=== PATIENT | male | born 1965 | race Hispanic/Latino ===

== ENCOUNTER 2017-03-10 07:29 | Inpatient (IN) | payer MEDICAID ==
--- NOTE | 2017-03-10 07:50 | ED PDOC ---
Arrival/HPI - General Chief Complaint: Psychiatric Evaluation Time Seen by Provider: 03/10/17 07:34 Historian: Patient - History of Present Illness Narrative History of Present Illness (Text): 03/10/17 07:44 A 51 year old male, whose past medical history includes psychiatric disorders, has been transferred from [facility] for direct psych admission for suicidal ideation. Patient states he drinks alcohol daily and his last drink was 16 hours ago. Also, patient mentions feeling shaky and has experienced withdrawal in the past. Patient has no other complaints. Past Medical History - Provider Review Nursing Documentation Reviewed: Yes - Infectious Disease Hx of Infectious Diseases: None - Gastrointestinal Hx Gastroesophageal Reflux: Yes - Psychiatric Hx Anxiety: Yes Hx Depression: Yes Hx Substance Use: No Other/Comment: SI. Substance Abuse Family/Social History - Physician Review Nursing Documentation Reviewed: Yes Family/Social History: Other (nc) Smoking Status: Heavy Smoker > 10 Cigarettes Daily Hx Alcohol Use: Yes Frequency of alcohol use: Daily Hx Substance Use: No Allergies/Home Meds Allergies/Adverse Reactions: Allergies Penicillins Adverse Reaction (Verified 03/10/17 10:49) RASH Home Medications: Home Meds Medication Instructions Recorded Confirmed No Known Home Med 03/10/17 03/10/17 Review of Systems - Physician Review All systems were reviewed & negative as marked: Yes - Review of Systems Constitutional: absent: Fevers Respiratory: absent: SOB Cardiovascular: absent: Chest Pain Gastrointestinal: absent: Abdominal Pain, Vomiting Neurological: absent: Focal Weakness Psychiatric: Suicidal Ideation Physical Exam Vital Signs Reviewed: Yes Vital Signs Temp Pulse Resp BP Pulse Ox 03/10/17 08:27 18 99 03/10/17 07:44 97.5 F L 74 18 117/74 97 Appearance: Positive for: Comfortable Pain Distress: None Mental Status: Positive for: Alert and Oriented X 3 - Systems Exam Head: Present: Atraumatic, Normocephalic Pupils: Present: PERRL Mouth: Present: Moist Mucous Membranes Neck: Present: Normal Range of Motion Respiratory/Chest: Present: Clear to Auscultation, Good Air Exchange. No: Respiratory Distress, Accessory Muscle Use Cardiovascular: Present: Regular Rate and Rhythm, Normal S1, S2. No: Murmurs Abdomen: Present: Normal Bowel Sounds. No: Tenderness, Distention, Peritoneal Signs Back: Present: Normal Inspection Upper Extremity: Present: Normal Inspection. No: Cyanosis, Edema Lower Extremity: Present: Normal Inspection. No: Edema Neurological: Present: GCS=15, Speech Normal Skin: Present: Warm, Dry, Normal Color. No: Rashes Psychiatric: Present: Alert, Oriented x 3, Suicidal Ideation Medical Decision Making - Medication Orders Current Medication Orders: Chlordiazepoxide (Librium) 50 mg PO Q8 VALENTÍN PRN Reason: Protocol Last Admin: 03/10/17 13:50 Dose: 50 mg Folic Acid (Folic Acid) 1 mg PO DAILY [facility] Last Admin: 03/10/17 13:50 Dose: 1 mg Gabapentin (Neurontin) 100 mg PO TID VALENTÍN PRN Reason: Protocol Last Admin: 03/10/17 13:50 Dose: 100 mg Mirtazapine (Remeron) 15 mg PO HS VALENTÍN Multivitamins (Thera Tab) 1 tab PO 0800 VALENTÍN Paroxetine HCl (Paxil) 10 mg PO DAILY [facility] Last Admin: 03/10/17 13:50 Dose: 10 mg Thiamine HCl (Vitamin B1 Tab) 100 mg PO DAILY [facility] Last Admin: 03/10/17 13:50 Dose: 100 mg Discontinued Medications Chlordiazepoxide (Librium) 50 mg PO STAT STA PRN Reason: Protocol Stop: 03/10/17 07:48 Last Admin: 03/10/17 07:58 Dose: 50 mg - Scribe Statement The provider has reviewed the documentation as recorded by the Miesha Ingram Provider Scribe Attestation: All medical record entries made by the Scribe were at my direction and personally dictated by me. I have reviewed the chart and agree that the record accurately reflects my personal performance of the history, physical exam, medical decision making, and the department course for this patient. I have also personally directed, reviewed, and agree with the discharge instructions and disposition. Disposition/Present on Arrival - Present on Arrival Any Indicators Present on Arrival: No History of DVT/PE: No History of Uncontrolled Diabetes: No Urinary Catheter: No History of Decub. Ulcer: No History Surgical Site Infection Following: None - Disposition Have Diagnosis and Disposition been Completed?: Yes Diagnosis: Suicidal ideation Disposition: HOSPITALIZED Disposition Time: 07:44 Condition: STABLE
--- NOTE | 2017-03-10 09:05 | PCM.BM ---
<Franco Mason - Last Filed: 03/10/17 09:06> Treatment Plan Problems - Problems identified on initial assessmt SUICIDAL IDEATION Date Initiated: 03/10/17 Time Initiated: 09:04 Assessment reference: RG VELEZ Status: Active DEPRESSION Date Initiated: 03/10/17 Time Initiated: 09:04 Assessment reference: HP, NA ALCOHOL ABUSE Date Initiated: 03/10/17 Time Initiated: 09:05 Assessment reference: HP, NA Treatment assets and liabiliti Patient Assests: cooperative, motivated, self-reliant, ADL independent, physically healthy, cognitively intact Patient Liabilities: live alone, poor support system, relationship conflicts, substance abuse - Milieu Protocol Maintain good personal hygiene: daily Encourage regular showers, daily Remind patient to perform daily oral care, daily Assist patient to perform ADL's Maintain personal safety: daily Educate patient to report safety concerns to staff, daily Monitor environment for contraband/sharps Medication safety: Monitor for expected outcome, potential side effects: daily, Assess barriers to learning: daily, Assess readiness for medication education: daily Discharge/Continuing Care - Education Needs Education Needs: Patient Medication, Patient Diagnosis/Disease Process, Patient Coping Skills, Patient Anger Management skills, Patient Placement options, Patient Community resources, Patient Activities of Daily Living, Patient Nutrition, Patient Health Practices/Safety, Patient Personal Hygiene/Grooming, Patient Aftercare Safety Plan - Discharge Discharge Criteria: Free of Suicidal thoughts, Normal sleep pattern, Ability to care for self, No longer exhibiting s/s of withdrawal Discharge to:: Home, Substance Abuse Rehab <Yane Gomez - Last Filed: 03/10/17 14:54> - Diagnosis (1) Bipolar 1 disorder Status: Acute Interventions: 03/10/17 14:56 Psychoeducation Psychopharmacology/adjustment of medications as needed/ monitoring possible side effects Monitor blood level of mood stabilizers Evaluate pt on daily basis Compliance with medications and follow up appointments Suicide and homicide risk assessment and prevention, coping strategies, safety plan Relapse prevention Reduction of symptoms Improve functional status Family involvement As outpatient: cognitive behavioral therapy (2) Alcohol use disorder Status: Acute Interventions: 03/10/17 14:56 Monitoring withdrawal symptoms Medical detoxification Pharmacotherapy for alcohol/benzos/opioid dependence Maintaining sobriety Relapse prevention Possible rehabilitation Motivational interviewing 12-step programs: AA meetings 03/10/17 14:56 <Lakesha Alex - Last Filed: 03/10/17 16:10> Family Contact Family involvement: Family/SO is involved Family contact: Patient agrees to contact <Doroat Burroughs - Last Filed: 03/11/17 10:25>
[2017-03-10 11:57] LABS: BASO # 0.03 K/mm3 (0.0-2.0); BASO % 0.5 % (0.0-3.0); EOS # 0.3 (0.0-0.7); EOS % 4.6 % (1.5-5.0); GRAN # 3.9 (1.4-6.5); HEMATOCRIT 39.6 % (42.0-52.0); LYMPH # 1.7 (1.2-3.4); LYMPH % 25.8 % (22.0-35.0); MEAN CELL VOLUME 90.2 fl (80.0-105.0); MEAN CORPUSCULAR HEMOGLOBIN 31.9 pg (25.0-35.0); MEAN CORPUSCULAR HGB CONC 35.4 g/dl (31.0-37.0); MEAN PLATELET VOLUME 8.7 fl (7.0-11.0); MONO # 0.6 (0.1-0.6); MONO % 9.1 % (1.0-6.0); RED CELL DISTRIBUTION WIDTH 13.6 % (11.5-14.5); WHITE BLOOD COUNT 6.5 10^3/ul (4.5-11.0)
[2017-03-10 12:10] LABS: ALB/GLOB RATIO 1.5 (1.1-1.8); ALKALINE PHOSPHATASE 63 U/L (38-133); ALT/SGPT 43 U/L (7-56); AST/SGOT 24 U/L (15-59); BILIRUBIN,TOTAL 0.7 mg/dL (0.2-1.3); BLOOD UREA NITROGEN 16 mg/dL (7-21); CALCIUM 9.3 mg/dL (8.4-10.5); CARBON DIOXIDE 28 mmol/L (21-33); CHLORIDE 105 mmol/L (98-107); CHOLESTEROL 140 mg/dL (130-200); GFR AFRICAN-AMERICAN > 60; GLUCOSE,RANDOM 109 mg/dL (70-110); POTASSIUM 4.2 mmol/L (3.6-5.0); SODIUM 140 mmol/L (132-148); TOTAL PROTEIN 6.8 g/dL (5.8-8.3)
[2017-03-10 12:27] LABS: FREE T4 0.65 ng/dL (0.78-2.19)
--- NOTE | 2017-03-10 15:21 | PCM.PSYCH ---
Initial Psychiatric Evaluation - Initial Psychiatric Evaluation Type of Admission: Voluntary Legal Status: Capacity (patient has capacity to sign consent for treatment) Chief Complaint (in patient's own words): 'I was planning to kill myself for past 2 weeks, yesterday I tried to jump in front of the traffic but my stopped me" Patient's Reaction to Hospitalization: patient was transferred from [facility] for evaluation of depressive symptoms, possible suicidal ideation, with a plan to jump in front of the traffic, as per report patient was going to jump in front of the car, but patient stopped him and brought him to the hospital. History of Present Illness and Precipitating Events: shortly patient is 51 year old male, self reported history of bipolar disorder, history of anxiety disorder, history of multiple psychiatric admissions in the past, s per patient it more than 100 suicidal attempts in the past, history of alcohol use disorder, multiple detoxes and rehabs in the past, patient currently does not work, homeless, was sent from [facility] for evaluation of depressive symptoms, possible suicidal ideation, patient needs further evaluation, observation, medications resumption and titration. Patient was seen today at the treatment team meeting, patient presented to have marginal personal hygiene, not shaved, overall was pleasant, superficially corporative. Include ADLs. Patient reported to have long history of psychiatric illness, patient said first admission was at age of 11 he shouldn't try to kill himself in the past, patient also has history of being in [facility] for consideration [facility] as well as [facility] since the past. As per report patient was at [facility] and was discharged on 02/22/2017, about 15 days ago. As per patient he was noncompliant with the medications and follow- up appointments. Patient reported for past 2 weeks he was feeling hopeless, helpless, depressed, for the past 2 weeks he was thinking to end up his life he was thinking about either overdose on medications or jump in front of the traffic. Patient said that he was planning to jump in front of traffic for past 2 days. Patient reported that he has no future, reported to feel hopeless. Patient was able to contract for safety reported that he have feelings of hurting himself he will ask for help. patient reported that he was drinking alcohol, vodka, about 5 pencil what grade day, patient reported to have mild withdrawal symptoms at present moment and patient has history of seizure withdrawal and alcohol delirium, patient reported last drink was about 17 hours a goal and most likely he will have withdrawal symptoms. Patient said that he is willing to take Librium multivitamins and thiamine. Patient reported that he smokes cigarettes about 2 packs a day, nicotine patch was offered, counseling provided. Patient denied using any other drugs, but has history of opioid dependence as well as abuse of benzodiazepines. Patient denied hearing voices, denied seeing things, denied paranoid ideations, patient does not present as psychotic Denied any legal problems, but reported being in penitentiary due to public intoxication. past psychiatric history: As per Jaison history patient has more than 12 admissions to psychiatry including [facility] when he was 11 years old. No history of sexual or physical abuse. Diagnosed with bipolar disorder and alcohol dependence. He had seizures because of withdrawals. Family psych history: Father committed suicide because of depression and mother was bipolar. Medical history: He had gastritis, atelectasis in his lung, peptic ulcer disease , will call medical consultation. social history: Patient does not work, drinks on daily basis, and the relationship with current girlfriend/ for past 23 years. Patient reported cervical was giving him restless leg syndrome, we'll not resume that medication, patient was willing to take Neurontin, this automatic typewriter inspector offered Paxil, Remeron at the nighttime for insomnia, Librium 50 mg 3 times a day scheduled, multivitamins, thiamine, folic acid. Risk, benefits, alternatives were discussed with the patient. Labs reviewed, transfer documentation from [facility] reviewed 03/10/17 11:30 03/10/17 12:02 Lab Results 03/10/17 12:02: Sodium 140, Potassium 4.2, Chloride 105, Carbon Dioxide 28, Anion Gap 11, BUN 16, Creatinine 0.8, Est GFR ( Amer) > 60, Est GFR (Non- Af Amer) > 60, Random Glucose 109, Calcium 9.3, Total Bilirubin 0.7, AST 24, ALT 43, Alkaline Phosphatase 63, Total Protein 6.8, Albumin 4.1, Globulin 2.7, Albumin/Globulin Ratio 1.5, Triglycerides 202 H, Cholesterol 140, LDL Cholesterol Direct 79, HDL Cholesterol 38 03/10/17 11:30: Free T4 0.65 L, TSH 3rd Generation 1.00 03/10/17 11:30: WBC 6.5, RBC 4.39, Hgb 14.0, Hct 39.6 L, MCV 90.2, MCH 31.9, MCHC 35.4, RDW 13.6, Plt Count 234, MPV 8.7, Gran % 60.0, Lymph % (Auto) 25.8, [place] % (Auto) 9.1 H, Eos % (Auto) 4.6, Baso % (Auto) 0.5, Gran # 3.90, Lymph # 1.7, [place] # 0.6, Eos # 0.3, Baso # 0.03 Vital Signs Temp Pulse Resp BP Pulse Ox 03/10/17 12:37 98.1 F 74 16 132/81 03/10/17 08:27 18 99 03/10/17 07:44 97.5 F L 74 18 117/74 97 Current Medications: Active Medications Generic Name Dose Route Start Last Admin Trade Name Freq PRN Reason Stop Dose Admin Chlordiazepoxide 50 mg 03/10/17 14:00 03/10/17 13:50 Librium PO 50 mg Q8 VALENTÍN Administration Protocol Folic Acid 1 mg 03/10/17 11:00 03/10/17 13:50 Folic Acid PO 1 mg DAILY VALNETÍN Administration Gabapentin 100 mg 03/10/17 13:00 03/10/17 13:50 Neurontin PO 100 mg TID VALENTÍN Administration Protocol Mirtazapine 15 mg 03/10/17 22:00 Remeron PO HS VALENTÍN Multivitamins 1 tab 03/11/17 08:00 Thera Tab PO 0800 VALENTÍN Paroxetine HCl 10 mg 03/10/17 11:00 03/10/17 13:50 Paxil PO 10 mg DAILY VALENTÍN Administration Thiamine HCl 100 mg 03/10/17 11:00 03/10/17 13:50 Vitamin B1 Tab PO 100 mg DAILY VALENTÍN Administration Past Psychiatric History - Past Psychiatric History Previous Treatment History: Inpatient Prior Professional Help: see HPI Prior Psychiatric Treatment: see HPI At what hospital: see HPI Duration: see HPI Nature of Treatment: see HPI Explanation of prior treatment: see HPI History of Abuse: see HPI History of ETOH/Drug Use: see HPI History of Family Illness: see HPI Pertinent Medical Hx (Current Medical&Sleep Prob, Allergies): Allergies Allergy/AdvReac Type Severity Reaction Status Date / Time Penicillins AdvReac RASH Verified 08/30/17 10:49 No Known Home Med 03/10/17 Review of Systems - Review of Systems Systems not reviewed;Unavailable: Acuity of Condition - EENT Eyes: As Per HPI Ears: As Per HPI Nose/Mouth/Throat: As Per HPI - Cardiovascular Cardiovascular: As Per HPI - Respiratory Respiratory: As Per HPI - Gastrointestinal Gastrointestinal: As Per HPI - Genitourinary Genitourinary: As Per HPI - Reproductive: Male Reproductive:Male: As Per HPI - Musculoskeletal Musculoskeletal: As Par HPI - Integumentary Integumentary: As Per HPI - Neurological Neurological: As Per HPI - Psychiatric Psychiatric: As Per HPI - Endocrine Endocrine: As Per HPI - Hematologic/Lymphatic Hematologic: As Per HPI Mental Status Examination - Personal Presentation Personal Presentation: Looks stated age - Affect Affect: Flat - Motor Activity Motor Activity: Psychomotor Retardation - Reliability in Providing Information Reliability in Providing Information: Fair - Speech Speech: Organized - Mood Mood: Depressed, Anxious - Formal Thought Process Formal Thought Process: No Impairment - Obsessions/Compulsions Obsessions: None Compulsions: None - Cognitive Functions Orientation: Person, Place, Situation, Time Sensorium: Alert Attention/Concentration: Easily distracted Estimate of Intelligence: Below average Judgement: Intact, as evidence by: Insight regarding need for hospitalization - Risk Risk: Suicidal, Seizure, Withdrawal, Self-mutilation, Diminished functioning - Strength & Assets Inventory Strength & Assets Inventory: Family support, Cooperative - Limitations Limitations: Other (chronic mental illness, chronic alcohol use, a lot of social issues) DSM 5 DX - DSM 5 DSM 5 Diagnosis: as per past history bipolar disorder type I Alcohol use disorder Rule out substance-induced anxiety disorder Rule out alcohol withdrawals - Recommended/Plan of Treatment Treatment Recommendations and Plan of Treatment: milieu, structure, supportive therapy Paxil will be started 10 mg at the morning time for depression and anxiety Librium 50 mg 3 times a day scheduled for possible alcohol withdrawal symptoms We will monitor vital signs Remeron 15 mg at the nighttime for depression and insomnia Neurontin 300 mg 3 times a day for mood stabilization Multivitamins, thiamine, folic acid will be started Medical consultation will be called freezer worker evaluation for possible rehabilitation, patient does not want to go to rehabilitation This automatic typewriter inspector offering naltrexone patient refused possible collateral information from patient's We'll monitor closely Projected ELOS: 7 days Prognosis: guarded Discharge Plan and Discharge Criteria: Pt will be not depressed or manic, will be more hopeful, will be not psychotic or anxious, will be not having thoughts of harming self or others, will be tolerating medications well, will not have major side effects, will be able to function, will not pose threat to self or others. - Smoking Cessation Smoking Cessation Initiated: Yes
[2017-03-10] MEDS: Alum-Mag Hydrox-Simethicone Susp (30 mL) PO PRN ×2 (17:17→21:05)
[2017-03-11] MEDS: Multivitamin Therapeutic Tab PO SCH (08:48)
[2017-03-11] MEDS: Alum-Mag Hydrox-Simethicone Susp (30 mL) PO PRN (08:57)
[2017-03-11 12:22] LABS: PH,URINE 6.5 (4.7-8.0); URINE BILIRUBIN NEGATIVE (NEGATIVE); URINE BLOOD TRACE-INTACT (NEGATIVE); URINE GLUCOSE (UA) NEGATIVE (NEGATIVE); URINE KETONE NEGATIVE (NEGATIVE); URINE LEUKOCYTE ESTERASE NEGATIVE Leu/uL (NEGATIVE); URINE PROTEIN NEGATIVE mg/dL (<30 mg/dL); URINE UROBILINOGEN 0.2 E.U./dL (<1 E.U./dL)
[2017-03-11 12:33] LABS: URINE APPEARANCE CLEAR (CLEAR); URINE COLOR YELLOW (YELLOW)
[2017-03-11 12:53] LABS: URINE BACTERIA TRACE (NEG); URINE RBC 0 - 2 /hpf (0-2); URINE WBC NEGATIVE /hpf (0-6)
--- NOTE | 2017-03-11 14:56 | CP.PCM.CON ---
<Neli Kidd - Last Filed: 03/11/17 14:57> History of Present Illness - History of Present Illness History of Present Illness: Patient is a 51 year old male with no reported PMHx of Bipolar and anxiety disorder. Of note, patient is a poor historian. Patient rushed through history. He said multiple times "Nothing is wrong with me, I will be going home soon". He was admitted to [facility] Psych unit for suicidal ideation. PMHx: Denied PSHx: Denied Allergies: Denies; Penicillin per chart. Social Hx: Denies Alcohol, Tobacco, or any illicit drug use. Per chart, patient drinks alcohol daily. Hospitalizations: Denies. Per chart patient had multiple Psych Admissions. Family Hx: Denies. Meds: Denies taking any medications at home. ROS Complains of: Complains of Abdominal Pain. (Stated that we wouldn't do anything about it, and that I should not worry about it because he is about to leave soon) Denies: Headache, Dizziness, Lightheadedness, Tremor, Changes in Vision, Chest Pain, Palpitations, SOB, N/V/D, constipation, tingling, focal motor/ sensory lost, Audio/Visual/Tactile Hallucinations, Suicidal Ideation, Homicidal Ideation. Review of Systems - Review of Systems Review of Systems: As per HPI. Past Patient History - Infectious Disease Hx of Infectious Diseases: None - Past Social History Smoking Status: Heavy Smoker > 10 Cigarettes Daily - HEENT Other/Comment: MYRINGOTOMY - GASTROINTESTINAL Hx Gastroesophageal Reflux: Yes - PSYCHIATRIC Hx Anxiety: Yes Hx Depression: Yes Hx Substance Use: No Other/Comment: SI. Substance Abuse - SURGICAL HISTORY Hx Surgeries: No Meds Allergies/Adverse Reactions: Allergies Allergy/AdvReac Type Severity Reaction Status Date / Time Penicillins AdvReac RASH Verified 03/10/17 10:49 - Medications Medications: Current Medications Al Hydrox/Mg Hydrox/Simethicone (Maalox Plus 30 Ml) 30 ml PO DAILY PRN PRN Reason: Indigestion / Heartburn Last Admin: 03/11/17 08:57 Dose: 30 ml Chlordiazepoxide (Librium) 25 mg PO QID VALENTÍN PRN Reason: Protocol Folic Acid (Folic Acid) 1 mg PO DAILY VALENTÍN Last Admin: 03/11/17 08:46 Dose: 1 mg Gabapentin (Neurontin) 100 mg PO TID VALENTÍN PRN Reason: Protocol Last Admin: 03/11/17 12:43 Dose: 100 mg Hydrocortisone (Cortizone 1% Cream) 0 gm TOP BID PRN PRN Reason: Itching / Pruritus Mirtazapine (Remeron) 15 mg PO HS [facility] Last Admin: 03/10/17 21:03 Dose: 15 mg Multivitamins (Thera Tab) 1 tab PO 0800 [facility] Last Admin: 03/11/17 08:48 Dose: 1 tab Nicotine (Nicoderm Cq) 1 patch TD DAILY [facility] Last Admin: 03/11/17 08:58 Dose: Not Given Pantoprazole Sodium (Protonix Ec Tab) 40 mg PO 0600 [facility] Paroxetine HCl (Paxil) 10 mg PO DAILY [facility] Last Admin: 03/11/17 08:48 Dose: 10 mg Thiamine HCl (Vitamin B1 Tab) 100 mg PO DAILY [facility] Last Admin: 03/11/17 08:48 Dose: 100 mg Physical Exam - Constitutional Appears: Non-toxic, No Acute Distress - Head Exam Head Exam: ATRAUMATIC, NORMAL INSPECTION, NORMOCEPHALIC - Eye Exam Eye Exam: EOMI, Normal appearance - Respiratory Exam Respiratory Exam: Clear to Auscultation Bilateral. absent: Rales, Rhonchi, Wheezes - Cardiovascular Exam Cardiovascular Exam: RRR, +S1, +S2. absent: JVD - GI/Abdominal Exam GI & Abdominal Exam: Normal Bowel Sounds, Soft. absent: Organomegaly, Tenderness - Extremities Exam Extremities exam: Positive for: pedal pulses present. Negative for: pedal edema - Neurological Exam Neurological exam: CN II-XII Intact - Psychiatric Exam Psychiatric exam: Agitated, Manic Additional comments: Speech was high volume and rapid rate. Thought Process was linear and Goal- directed. Patient has poor insight and judgment. Results - Vital Signs Recent Vital Signs: Last Vital Signs Temp 97.3 F L 03/11/17 06:24 Pulse 74 03/11/17 06:24 Resp 20 03/11/17 06:24 BP 132/85 03/11/17 06:24 Pulse Ox 95 03/11/17 06:24 - Labs Result Diagrams: 03/10/17 11:30 03/10/17 12:02 Labs: Laboratory Results - last 24 hr 03/11/17 03/11/17 03/11/17 07:10 12:00 12:00 Fasting Glucose 133 H Urine Color Yellow Urine Appearance Clear Urine pH 6.5 Ur Specific [place] 1.015 Urine Protein Negative Urine Glucose (UA) Negative Urine Ketones Negative Urine Blood Trace-intact H Urine Nitrate Negative Urine Bilirubin Negative Urine Urobilinogen 0.2 Ur Leukocyte Esterase Negative Urine RBC 0 - 2 Urine WBC Negative Urine Bacteria Trace Urine Opiates Screen Negative Urine Methadone Screen Negative Ur Barbiturates Screen Negative Ur Phencyclidine Scrn Negative Ur Amphetamines Screen Negative U Benzodiazepines Scrn Positive H U Oth Cocaine Metabols Negative U Cannabinoids Screen Negative Assessment & Plan - Assessment and Plan (Free Text) Assessment: 51 y.o male admitted for suicidal ideation. Plan: We added protonix for GI prophylaxis. TSH for normal. Triglycerides were elevated at 202. Elevated triglycerides can be managed outpatient. We will sign of on this patient. Please feel free to contact us with questions. Patient seen, discussed, and reviewed with Attending. Neli Kidd PGY-1 - Date & Time Date: 03/11/17 Time: 12:00 <Ingris Dickerson - Last Filed: 03/11/17 16:07> Meds - Medications Medications: Current Medications Al Hydrox/Mg Hydrox/Simethicone (Maalox Plus 30 Ml) 30 ml PO DAILY PRN PRN Reason: Indigestion / Heartburn Last Admin: 03/11/17 08:57 Dose: 30 ml Chlordiazepoxide (Librium) 25 mg PO QID [facility] PRN Reason: Protocol Folic Acid (Folic Acid) 1 mg PO DAILY [facility] Last Admin: 03/11/17 08:46 Dose: 1 mg Gabapentin (Neurontin) 100 mg PO TID VALENT[facility]N PRN Reason: Protocol Last Admin: 03/11/17 12:43 Dose: 100 mg Hydrocortisone (Cortizone 1% Cream) 0 gm TOP BID PRN PRN Reason: Itching / Pruritus Stop: 03/13/17 23:59 Lorazepam (Ativan) 2 mg IM QID PRN; Protocol PRN Reason: severe agitation Mirtazapine (Remeron) 15 mg PO HS [facility] Last Admin: 03/10/17 21:03 Dose: 15 mg Multivitamins (Thera Tab) 1 tab PO 0800 [facility] Last Admin: 03/11/17 08:48 Dose: 1 tab Nicotine (Nicoderm Cq) 1 patch TD DAILY [facility] Last Admin: 03/11/17 08:58 Dose: Not Given Pantoprazole Sodium (Protonix Ec Tab) 40 mg PO 0600 [facility] Paroxetine HCl (Paxil) 10 mg PO DAILY [facility] Last Admin: 03/11/17 08:48 Dose: 10 mg Thiamine HCl (Vitamin B1 Tab) 100 mg PO DAILY [facility] Last Admin: 03/11/17 08:48 Dose: 100 mg Ziprasidone (Geodon Cap) 20 mg PO Q6H PRN; Protocol PRN Reason: agiation Ziprasidone (Geodon Inj) 20 mg IM QID PRN; Protocol PRN Reason: severe agitation Results - Vital Signs Recent Vital Signs: Last Vital Signs Temp 97.3 F L 03/11/17 06:24 Pulse 74 03/11/17 06:24 Resp 20 03/11/17 06:24 BP 132/85 03/11/17 06:24 Pulse Ox 95 03/11/17 06:24 - Labs Result Diagrams: 03/10/17 11:30 03/10/17 12:02 Labs: Laboratory Results - last 24 hr 03/11/17 03/11/17 03/11/17 07:00 07:10 12:00 Fasting Glucose 133 H Urine Color Yellow Urine Appearance Clear Urine pH 6.5 Ur Specific [place] 1.015 Urine Protein Negative Urine Glucose (UA) Negative Urine Ketones Negative Urine Blood Trace-intact H Urine Nitrate Negative Urine Bilirubin Negative Urine Urobilinogen 0.2 Ur Leukocyte Esterase Negative Urine RBC 0 - 2 Urine WBC Negative Urine Bacteria Trace Urine Opiates Screen Urine Methadone Screen Ur Barbiturates Screen Ur Phencyclidine Scrn Ur Amphetamines Screen U Benzodiazepines Scrn U Oth Cocaine Metabols U Cannabinoids Screen RPR Nonreactive 03/11/17 12:00 Fasting Glucose Urine Color Urine Appearance Urine pH Ur Specific [place] Urine Protein Urine Glucose (UA) Urine Ketones Urine Blood Urine Nitrate Urine Bilirubin Urine Urobilinogen Ur Leukocyte Esterase Urine RBC Urine WBC Urine Bacteria Urine Opiates Screen Negative Urine Methadone Screen Negative Ur Barbiturates Screen Negative Ur Phencyclidine Scrn Negative Ur Amphetamines Screen Negative U Benzodiazepines Scrn Positive H U Oth Cocaine Metabols Negative U Cannabinoids Screen Negative RPR Attending/Attestation - Attestation I have personally seen and examined this patient.: Yes I have fully participated in the care of the patient.: Yes I have reviewed all pertinent clinical information: Yes Notes (Text): 03/11/17 15:57 attending note; Patient seen and examined in psychiatric floor. Patient is alert and awake. denies any complaints. Lab reviewed. mildly elevated glucose and triglyceride. Dietitian evaluation requested. Carbohydrate consistent diet ordered. alcohol abuse; continue multivitamin, thiamine, folic acid. Continue Librium. Active smoking; continue NicoDerm patch. Smoking cessation/alcohol cessation is strongly advised. Patient is medically stable. Please reconsult as needed. Thank you for the courtesy of this consultation.
--- NOTE | 2017-03-11 14:58 | PCM.PYCHPN ---
Psychiatric Progress Note - Psychiatric Progress Note Patient seen today, length of contact: 30 minutes Patient Chief Complaint: 'I was just trunk, I want to leave, please let me go" Problems Identified/Issues Discussed: Suicide/ homicide prevention, past psychiatric h/o, current psychiatric symptoms , medical problems, risk/benefits and alternatives of medications, medications compliance, coping strategies, substance abuse h/o, relapse prevention, importance of follow up with psychiatrist and therapist, discharge plan. Medical Problems: eczema, gastritis, atelectasis in his lung, peptic ulcer disease Diagnostic Results: 03/10/17 11:30 03/10/17 12:02 Lab Results 03/11/17 12:00: Urine Opiates Screen Negative, Urine Methadone Screen Negative, Ur Barbiturates Screen Negative, Ur Phencyclidine Scrn Negative, Ur Amphetamines Screen Negative, U Benzodiazepines Scrn Positive H, U Oth Cocaine Metabols Negative, U Cannabinoids Screen Negative 03/11/17 12:00: Urine Color Yellow, Urine Appearance Clear, Urine pH 6.5, Ur Specific [place] 1.015, Urine Protein Negative, Urine Glucose (UA) Negative, Urine Ketones Negative, Urine Blood Trace-intact H, Urine Nitrate Negative, Urine Bilirubin Negative, Urine Urobilinogen 0.2, Ur Leukocyte Esterase Negative , Urine RBC 0 - 2, Urine WBC Negative, Urine Bacteria Trace 03/11/17 07:10: Fasting Glucose 133 H 03/10/17 12:02: Sodium 140, Potassium 4.2, Chloride 105, Carbon Dioxide 28, Anion Gap 11, BUN 16, Creatinine 0.8, Est GFR ( Amer) > 60, Est GFR (Non- Af Amer) > 60, Random Glucose 109, Calcium 9.3, Total Bilirubin 0.7, AST 24, ALT 43, Alkaline Phosphatase 63, Total Protein 6.8, Albumin 4.1, Globulin 2.7, Albumin/Globulin Ratio 1.5, Triglycerides 202 H, Cholesterol 140, LDL Cholesterol Direct 79, HDL Cholesterol 38 03/10/17 11:30: Free T4 0.65 L, TSH 3rd Generation 1.00 03/10/17 11:30: WBC 6.5, RBC 4.39, Hgb 14.0, Hct 39.6 L, MCV 90.2, MCH 31.9, MCHC 35.4, RDW 13.6, Plt Count 234, MPV 8.7, Gran % 60.0, Lymph % (Auto) 25.8, [place] % (Auto) 9.1 H, Eos % (Auto) 4.6, Baso % (Auto) 0.5, Gran # 3.90, Lymph # 1.7, [place] # 0.6, Eos # 0.3, Baso # 0.03 Vital Signs Temp Pulse Resp BP Pulse Ox 03/11/17 06:24 97.3 F L 74 20 132/85 95 03/10/17 12:37 98.1 F 74 16 132/81 03/10/17 08:27 18 99 03/10/17 07:44 97.5 F L 74 18 117/74 97 DSM 5 Symptoms Update: shortly patient is 51 year old male, self reported history of bipolar disorder, history of anxiety disorder, history of multiple psychiatric admissions in the past, s per patient it more than 100 suicidal attempts in the past, history of alcohol use disorder, multiple detoxes and rehabs in the past, patient currently does not work, homeless, was sent from [facility] for evaluation of depressive symptoms, possible suicidal ideation, patient needs further evaluation, observation, medications resumption and titration. Patient was seen today in his room, pt submitted 48hr notice today, when was asked why, pt said that he wants to go to work, at the same time pt said "I was just drunk", this lyric writer would like to emphasize the fact that patient said yesterday that he was planning to jump in front of the car for past 3 days, patient also was pulled back when patient tried to jump in front of the car, patient seems to be minimizing, still not ready to go for discharge, needs further evaluation and stabilization. after education, pt rescinded 48 hour notice. withdrawals are better, pt reported to sleep well as per staff pt at times is irritable, angry. no behavioral incidents. compliance with meds good, but pt has unpredictable impulses. DSM 5 Diagnosis: as per past history bipolar disorder type I Alcohol use disorder Rule out substance-induced anxiety disorder Rule out alcohol withdrawals Medication Change: Yes (Librium dose decreased) Medical Record Reviewed: Yes Consults ordered or reviewed: medical consult appreciated, see notes for more detailed information, discussed with Dr. Hargrove today Mental Status Examination - Cognitive Function Orientation: Person, Place, Situation, Time Memory: Intact Attention: Poor Concentration: Poor Association: WNL Fund of Knowledge: WNL - Mood Mood: Depressed, Anxious - Affect Affect: Flat - Speech Speech: Appropriate - Formal Thought Process Formal Thought Process: No Impairment - Suicidal Ideation Suicidal Ideation: No - Homicidal Ideation Homicidal Ideation: No Goal/Treatment Plan - Goal/Treatment Plan Need for Continued Stay: Remain at risks for inpatient hospitalization, Severe depression anxiety, Discharge may exacerbated symptoms, Severe functional impairment Progress Toward Problem(s) and Goals/Treatment Plan: milieu, structure, supportive therapy Paxil 10 mg at the morning time for depression and anxiety Librium 25qid times a day scheduled for possible alcohol withdrawal symptoms We will monitor vital signs Remeron 15 mg at the nighttime for depression and insomnia Neurontin 300 mg 3 times a day for mood stabilization Multivitamins, thiamine, folic acid will be started Medical consultation will be called community mental health worker evaluation for possible rehabilitation, patient does not want to go to rehabilitation This lyric writer offering naltrexone patient refused possible collateral information from patient's We'll monitor closely Estimated Date of D/C: 03/16/17
[2017-03-11] MEDS ORDERED: Pantoprazole 40 mg EC Tab PO ONE (17:30)
[2017-03-12] MEDS ORDERED: Pantoprazole 40 mg EC Tab PO SCH ×2 (06:00)
[2017-03-12 07:01] VITALS: O2SAT 94
[2017-03-12] MEDS: Multivitamin Therapeutic Tab PO SCH (08:38)
[2017-03-12] MEDS: Pantoprazole 40 mg EC Tab PO SCH (08:45)
[2017-03-12] MEDS: Hydrocortisone 1% Cream (30 GM) TOP PRN (08:55)
--- NOTE | 2017-03-12 15:59 | PCM.PYCHPN ---
Psychiatric Progress Note - Psychiatric Progress Note Patient seen today, length of contact: 30 minutes Patient Chief Complaint: 'I don't think that I am suicidal now, all I need to do is stop drinking..." Problems Identified/Issues Discussed: Suicide/ homicide prevention, past psychiatric h/o, current psychiatric symptoms , medical problems, risk/benefits and alternatives of medications, medications compliance, coping strategies, substance abuse h/o, relapse prevention, importance of follow up with psychiatrist and therapist, discharge plan. Medical Problems: eczema, gastritis, atelectasis in his lung, peptic ulcer disease Diagnostic Results: 03/10/17 11:30 03/10/17 12:02 Lab Results 03/11/17 12:00: Urine Opiates Screen Negative, Urine Methadone Screen Negative, Ur Barbiturates Screen Negative, Ur Phencyclidine Scrn Negative, Ur Amphetamines Screen Negative, U Benzodiazepines Scrn Positive H, U Oth Cocaine Metabols Negative, U Cannabinoids Screen Negative 03/11/17 12:00: Urine Color Yellow, Urine Appearance Clear, Urine pH 6.5, Ur Specific [place] 1.015, Urine Protein Negative, Urine Glucose (UA) Negative, Urine Ketones Negative, Urine Blood Trace-intact H, Urine Nitrate Negative, Urine Bilirubin Negative, Urine Urobilinogen 0.2, Ur Leukocyte Esterase Negative , Urine RBC 0 - 2, Urine WBC Negative, Urine Bacteria Trace 03/11/17 07:10: Fasting Glucose 133 H 03/10/17 12:02: Sodium 140, Potassium 4.2, Chloride 105, Carbon Dioxide 28, Anion Gap 11, BUN 16, Creatinine 0.8, Est GFR ( Amer) > 60, Est GFR (Non- Af Amer) > 60, Random Glucose 109, Calcium 9.3, Total Bilirubin 0.7, AST 24, ALT 43, Alkaline Phosphatase 63, Total Protein 6.8, Albumin 4.1, Globulin 2.7, Albumin/Globulin Ratio 1.5, Triglycerides 202 H, Cholesterol 140, LDL Cholesterol Direct 79, HDL Cholesterol 38 03/10/17 11:30: Free T4 0.65 L, TSH 3rd Generation 1.00 03/10/17 11:30: WBC 6.5, RBC 4.39, Hgb 14.0, Hct 39.6 L, MCV 90.2, MCH 31.9, MCHC 35.4, RDW 13.6, Plt Count 234, MPV 8.7, Gran % 60.0, Lymph % (Auto) 25.8, [place] % (Auto) 9.1 H, Eos % (Auto) 4.6, Baso % (Auto) 0.5, Gran # 3.90, Lymph # 1.7, [place] # 0.6, Eos # 0.3, Baso # 0.03 Vital Signs Temp Pulse Resp BP Pulse Ox 03/11/17 06:24 97.3 F L 74 20 132/85 95 03/10/17 12:37 98.1 F 74 16 132/81 03/10/17 08:27 18 99 03/10/17 07:44 97.5 F L 74 18 117/74 97 Temp Pulse Resp BP Pulse Ox 97.4 F L 80 20 116/73 94 L 03/12/17 06:59 03/12/17 15:57 03/12/17 06:59 03/12/17 15:57 03/12/17 06:59 DSM 5 Symptoms Update: shortly patient is 51 year old male, self reported history of bipolar disorder, history of anxiety disorder, history of multiple psychiatric admissions in the past, s per patient it more than 100 suicidal attempts in the past, history of alcohol use disorder, multiple detoxes and rehabs in the past, patient currently does not work, homeless, was sent from [facility] for evaluation of depressive symptoms, possible suicidal ideation, patient needs further evaluation, observation, medications resumption and titration. Patient was seen today at the [facility] area, pt submitted 48hr notice yesterday, then rescinded it later on. pt said that he feels "much better", when was asked what made that change patient said "all I need to do is stop drinking", patient has long and debilitating history of alcohol use disorder, multiple rehabs and detoxes, also bipolar disorder with history of more than 100 suicidal attempts (as per patient ). overall patient is improving, but as per nursing report, patient has episodes of emotional lability, unpredictable impulses, considering the fact that patient tried to end up his life by jumping in front of the car prior to come to the hospital, this designer/writer was to observe patient over the weekend. withdrawals are better, pt reported to sleep well as per staff pt at times is irritable, angry. no behavioral incidents. compliance with meds good, but pt has unpredictable impulses. DSM 5 Diagnosis: as per past history bipolar disorder type I Alcohol use disorder Rule out substance-induced anxiety disorder Rule out alcohol withdrawals Medication Change: Yes Medical Record Reviewed: Yes Consults ordered or reviewed: medical consult appreciated, see notes for more detailed information, discussed with Dr. Hargrove today Mental Status Examination - Cognitive Function Orientation: Person, Place, Situation, Time Memory: Intact Attention: Poor (some improvements) Concentration: Poor (some improvements) Association: WNL Fund of Knowledge: WNL - Mood Mood: Depressed (and feel better), Anxious - Affect Affect: Flat - Speech Speech: Appropriate - Formal Thought Process Formal Thought Process: No Impairment - Suicidal Ideation Suicidal Ideation: No - Homicidal Ideation Homicidal Ideation: No Goal/Treatment Plan - Goal/Treatment Plan Need for Continued Stay: Remain at risks for inpatient hospitalization, Severe depression anxiety, Discharge may exacerbated symptoms, Severe functional impairment Progress Toward Problem(s) and Goals/Treatment Plan: milieu, structure, supportive therapy Paxil 20 mg at the morning time for depression and anxiety Librium 25 three times a day scheduled for possible alcohol withdrawal symptoms We will monitor vital signs Remeron 30 mg at the nighttime for depression and insomnia Neurontin 300 mg 3 times a day for mood stabilization Multivitamins, thiamine, folic acid will be started Medical consultation will be called facility maintenance worker evaluation for possible rehabilitation, patient does not want to go to rehabilitation This designer/writer offering naltrexone patient refused possible collateral information from patient's We'll monitor closely possible discharge on Wednesday Estimated Date of D/C: 03/16/17
--- NOTE | 2017-03-13 08:34 | PCM.PYCHPN ---
Psychiatric Progress Note - Psychiatric Progress Note Patient seen today, length of contact: 25 minutes Patient Chief Complaint: "okay, better" Problems Identified/Issues Discussed: I reviewed assessment and recent notes. I met with patient at bedside. Patient is oriented x3, calm and superficially cooperative. Grooming is adequate. Patient reports feeling "okay, better". Affect is neutral during our interview. He denies any new concerns, handling medications and detox well without any current discomfort or pain. Denies wishes or suicidal thoughts. Patient continues to deny hallucinations or paranoia. Responses are relevant to questioning and he does not appear to be responding to internal stimuli. Staff notes indicate that patient has been labile and uncooperative at times. There were no major behavioral issues overnight. Diagnostic Results: as per past history bipolar disorder type I Alcohol use disorder Rule out substance-induced anxiety disorder Rule out alcohol withdrawals Medication Change: Yes (Librium decreased to 25 mg [facility] on 03/13/17) Medical Record Reviewed: Yes Mental Status Examination - Cognitive Function Orientation: Person, Place, Situation, Time Memory: Intact Attention: Poor (some improvements) Concentration: Poor (some improvements) Association: WNL Fund of Knowledge: WNL - Mood Mood: Depressed ( "okay, better"), Anxious - Affect Affect: Flat - Speech Speech: Appropriate - Formal Thought Process Formal Thought Process: No Impairment - Suicidal Ideation Suicidal Ideation: No - Homicidal Ideation Homicidal Ideation: No Goal/Treatment Plan - Goal/Treatment Plan Need for Continued Stay: Remain at risks for inpatient hospitalization, Severe depression anxiety, Discharge may exacerbated symptoms, Severe functional impairment Progress Toward Problem(s) and Goals/Treatment Plan: * c/w current tx and plan * Librium decreased to 25 mg [facility] on 03/13/17 * No new weekend labs thus far * Vitals reviewed and noted below: Selected Entries 03/12/17 03/12/17 06:59 15:57 Temperature 97.4 F L Pulse Rate 72 80 Respiratory 20 Rate Blood Pressure 113/74 116/73 Estimated Date of D/C: 03/16/17
[2017-03-13] MEDS: Hydrocortisone 1% Cream (30 GM) TOP PRN (08:38)
[2017-03-13] MEDS: Pantoprazole 40 mg EC Tab PO SCH (08:38)
[2017-03-13] MEDS: Multivitamin Therapeutic Tab PO SCH (08:40)
[2017-03-14] MEDS: Pantoprazole 40 mg EC Tab PO SCH (08:46)
[2017-03-14] MEDS: Multivitamin Therapeutic Tab PO SCH (08:46)
--- NOTE | 2017-03-14 08:49 | PCM.PYCHPN ---
Psychiatric Progress Note - Psychiatric Progress Note Patient seen today, length of contact: 25 minutes Patient Chief Complaint: "okay, better" Problems Identified/Issues Discussed: I reviewed recent notes and met with patient at bedside. Patient is calm and superficially cooperative. Responses are perfunctory without elaboration. Grooming is adequate. Patient reports feeling "better". Affect is neutral during our interview. He denies any new concerns, handling medications and detox well without any current discomfort or pain. Denies tremors and they weren't observed during my visit. He continues to deny having any wishes, suicidal thoughts or hallucinations. Appears to be well oriented. Responses are relevant to questioning and he does not appear to be responding to internal stimuli. Staff notes indicate that patient has been labile, short-tempered and uncooperative at times. Refused to go to group. Required prn raymond Wednesday. Diagnostic Results: as per past history bipolar disorder type I Alcohol use disorder Rule out substance-induced anxiety disorder Rule out alcohol withdrawals Medication Change: Yes (Librium tapered) Medical Record Reviewed: Yes Mental Status Examination - Cognitive Function Orientation: Person, Place, Situation, Time Memory: Intact Attention: Poor (some improvements) Concentration: Poor (some improvements) Association: WNL Fund of Knowledge: WNL - Mood Mood: Depressed ( "okay, better"), Anxious - Affect Affect: Flat - Speech Speech: Appropriate - Formal Thought Process Formal Thought Process: No Impairment - Suicidal Ideation Suicidal Ideation: No - Homicidal Ideation Homicidal Ideation: No Goal/Treatment Plan - Goal/Treatment Plan Need for Continued Stay: Remain at risks for inpatient hospitalization, Severe depression anxiety, Discharge may exacerbated symptoms, Severe functional impairment Progress Toward Problem(s) and Goals/Treatment Plan: * c/w current tx and plan * Librium decreased to 25 mg AMHS on 03/13/17 and then to 25 mg HS on 03/14/17 * No new weekend labs * Vitals reviewed and noted below: Selected Entries 03/13/17 03/13/17 07:24 16:00 Temperature 97.6 F Pulse Rate 62 76 Respiratory 20 Rate Blood Pressure 117/81 117/67 Estimated Date of D/C: 03/16/17
[2017-03-15] MEDS: Pantoprazole 40 mg EC Tab PO SCH (06:25)
[2017-03-15 06:58] VITALS: BP 125/84; PULSE 81; RESP 18; TEMP 98.2
[2017-03-15] MEDS: Multivitamin Therapeutic Tab PO SCH (09:14)
--- NOTE | 2017-03-15 15:45 | PCM.PYCHDC ---
Mental Status Examination - Mental Status Examination Orientation: Person, Place, Situation, Time Memory: Intact Mood: Neutral Affect: Broad (and mood congruent) Speech: Appropriate Attention: WNL Concentration: WNL Association: WNL Fund of Knowledge: WNL Formal Thought Process: No Impairment Description of patient's judgement and insight: Pt has improved insight into mental and medical illness, pt was compliant with medications and unit rules and regulations, pt was going to groups, was calm, cooperative, socially appropriate, no behavioral incidents, no agitation, no aggression. Psychotic Thoughts and Behaviors: Pt denied v/a/t hallucinations, denied paranoid ideations, pt does not appear to be psychotic, and thought process is goal directed. Suicidal Ideation: No Current Homicidal Ideation?: No Plan: pt adamantly denied thoughts of harming self or others denied intent or plan. Discharge Summary - Discharge Note Reason for Hospitalization: patient was transferred from [facility] for evaluation of depressive symptoms, possible suicidal ideation, with a plan to jump in front of the traffic, as per report patient was going to jump in front of the car, but patient stopped him and brought him to the hospital. during this hospitalization patient said that he was drunk when attempted to run in front of the traffic. Psychiatric History (includes Medical, Family, Personal Hx): see HPI Laboratory Data: 03/10/17 11:30 03/10/17 12:02 Lab Results 03/11/17 12:00: Urine Opiates Screen Negative, Urine Methadone Screen Negative, Ur Barbiturates Screen Negative, Ur Phencyclidine Scrn Negative, Ur Amphetamines Screen Negative, U Benzodiazepines Scrn Positive H, U Oth Cocaine Metabols Negative, U Cannabinoids Screen Negative 03/11/17 12:00: Urine Color Yellow, Urine Appearance Clear, Urine pH 6.5, Ur Specific [place] 1.015, Urine Protein Negative, Urine Glucose (UA) Negative, Urine Ketones Negative, Urine Blood Trace-intact H, Urine Nitrate Negative, Urine Bilirubin Negative, Urine Urobilinogen 0.2, Ur Leukocyte Esterase Negative , Urine RBC 0 - 2, Urine WBC Negative, Urine Bacteria Trace 03/11/17 07:10: Fasting Glucose 133 H 03/11/17 07:00: RPR Nonreactive 03/10/17 12:02: Sodium 140, Potassium 4.2, Chloride 105, Carbon Dioxide 28, Anion Gap 11, BUN 16, Creatinine 0.8, Est GFR ( Amer) > 60, Est GFR (Non- Af Amer) > 60, Random Glucose 109, Calcium 9.3, Total Bilirubin 0.7, AST 24, ALT 43, Alkaline Phosphatase 63, Total Protein 6.8, Albumin 4.1, Globulin 2.7, Albumin/Globulin Ratio 1.5, Triglycerides 202 H, Cholesterol 140, LDL Cholesterol Direct 79, HDL Cholesterol 38 03/10/17 11:30: Free T4 0.65 L, TSH 3rd Generation 1.00 03/10/17 11:30: WBC 6.5, RBC 4.39, Hgb 14.0, Hct 39.6 L, MCV 90.2, MCH 31.9, MCHC 35.4, RDW 13.6, Plt Count 234, MPV 8.7, Gran % 60.0, Lymph % (Auto) 25.8, [place] % (Auto) 9.1 H, Eos % (Auto) 4.6, Baso % (Auto) 0.5, Gran # 3.90, Lymph # 1.7, [place] # 0.6, Eos # 0.3, Baso # 0.03 Vital Signs Temp Pulse Resp BP Pulse Ox 03/15/17 07:00 98.2 F 81 18 125/84 03/15/17 06:57 98.2 F 81 18 125/84 03/14/17 16:00 79 127/93 H 03/14/17 07:22 97.6 F 62 20 114/68 03/13/17 16:00 76 117/67 03/13/17 07:24 97.6 F 62 20 117/81 03/12/17 15:57 80 116/73 03/12/17 06:59 97.4 F L 72 20 113/74 94 L 03/11/17 06:24 97.3 F L 74 20 132/85 95 03/10/17 12:37 98.1 F 74 16 132/81 03/10/17 08:27 18 99 03/10/17 07:44 97.5 F L 74 18 117/74 97 Consultations:: List each consultation separately and include: 1. Reason for request. 2. Findings. 3. Follow-up Consultations: medical consult appreciated, see notes for more detailed information, discussed with Dr. Hargrove Summary of Hospital Course include:: 1. Description of specific treatment plan utilized for patients during their course of treatmen. 2. Summarize the time- course for resolution of acute symptoms and/or regressed behaviors. 3. Describe issues identified and worked on during hospitalization. 4. Describe medication utilized. 5. Describe medical problems identified and treated. 6. Reassessment of suicide risk Summary of Hospital Course: shortly patient is 51 year old male, self reported history of bipolar disorder, history of anxiety disorder, history of multiple psychiatric admissions in the past, s per patient it more than 100 suicidal attempts in the past, history of alcohol use disorder, multiple detoxes and rehabs in the past, patient currently does not work, homeless, was sent from [facility] for evaluation of depressive symptoms, possible suicidal ideation, patient needs further evaluation, observation, medications resumption and titration. during initial evaluation patient presented to have marginal personal hygiene, not shaved, overall was pleasant, superficially corporative. good ADLs. Patient reported to have long history of psychiatric illness, patient said first admission was at age of 11 he shouldn't try to kill himself in the past, patient also has history of being in [facility] for consideration [facility] as well as forensic hospital since the past. As per report patient was at [facility] and was discharged on 02/22/2017, about 15 days ago. As per patient he was noncompliant with the medications and follow- up appointments. Patient reported for past 2 weeks he was feeling hopeless, helpless, depressed, for the past 2 weeks he was thinking to end up his life he was thinking about either overdose on medications or jump in front of the traffic. Patient said that he was planning to jump in front of traffic for past 2 days. Patient reported that he has no future, reported to feel hopeless. Patient was able to contract for safety reported that he have feelings of hurting himself he will ask for help. patient reported that he was drinking alcohol, vodka, about 5 pint of vodka every day, was stabilized on Librium, then was weaned off, multivitamins and thiamine. Patient reported that he smokes cigarettes about 2 packs a day, nicotine patch was offered, counseling provided. Patient denied using any other drugs, but has history of opioid dependence as well as abuse of benzodiazepines. Patient denied hearing voices, denied seeing things, denied paranoid ideations, patient does not present as psychotic Denied any legal problems, but reported being in [facility] due to public intoxication. past psychiatric history: As per Jaison history patient has more than 12 admissions to psychiatry including [facility] when he was 11 years old. No history of sexual or physical abuse. Diagnosed with bipolar disorder and alcohol dependence. He had seizures because of withdrawals. Family psych history: Father committed suicide because of depression and mother was bipolar. Medical history: He had gastritis, atelectasis in his lung, peptic ulcer disease , will call medical consultation. social history: Patient does not work, drinks on daily basis, and the relationship with current girlfriend/ for past 23 years. Patient reported cervical was giving him restless leg syndrome, we'll not resume that medication, patient was willing to take Neurontin, this typewriter tester offered Paxil, Remeron at the nighttime for insomnia, Librium 50 mg 3 times a day scheduled, multivitamins, thiamine, folic acid. Risk, benefits, alternatives were discussed with the patient. Labs reviewed, transfer documentation from [facility] reviewed 03/10/17 11:30 03/10/17 12:02 Lab Results 03/10/17 12:02: Sodium 140, Potassium 4.2, Chloride 105, Carbon Dioxide 28, Anion Gap 11, BUN 16, Creatinine 0.8, Est GFR ( Amer) > 60, Est GFR (Non- Af Amer) > 60, Random Glucose 109, Calcium 9.3, Total Bilirubin 0.7, AST 24, ALT 43, Alkaline Phosphatase 63, Total Protein 6.8, Albumin 4.1, Globulin 2.7, Albumin/Globulin Ratio 1.5, Triglycerides 202 H, Cholesterol 140, LDL Cholesterol Direct 79, HDL Cholesterol 38 03/10/17 11:30: Free T4 0.65 L, TSH 3rd Generation 1.00 03/10/17 11:30: WBC 6.5, RBC 4.39, Hgb 14.0, Hct 39.6 L, MCV 90.2, MCH 31.9, MCHC 35.4, RDW 13.6, Plt Count 234, MPV 8.7, Gran % 60.0, Lymph % (Auto) 25.8, [place] % (Auto) 9.1 H, Eos % (Auto) 4.6, Baso % (Auto) 0.5, Gran # 3.90, Lymph # 1.7, [place] # 0.6, Eos # 0.3, Baso # 0.03 Vital Signs Temp Pulse Resp BP Pulse Ox 03/10/17 12:37 98.1 F 74 16 132/81 03/10/17 08:27 18 99 03/10/17 07:44 97.5 F L 74 18 117/74 97 patient was stabilized on the following medications: Paxil 20 mg at the morning time for depression and anxiety Librium was weaned off Remeron 30 mg at the nighttime for depression and insomnia Neurontin 300 mg 3 times a day for mood stabilization Multivitamins, thiamine, folic acid patient tolerated medications well, no side effects observed or reported, no withdrawal symptoms identified. initially patient refused to be on naltrexone, today prior to discharge this typewriter tester offered patient to be on naltrexone again and patient agreed with that medication. Risk, benefits, alternatives of the medication discussed with the patient, patient verbalized understanding. Patient was seen by medical team please see notes for more detailed information. Over the course of this hospitalization pt was attending groups, pt also had medication management, had therapeutic milieu. Overall pt improved significantly, pt's affect became brighter, pt was less depressed, has realistic future oriented plans, pt also does not appear to be psychotic, or anxious, pt was socially appropriate, no behavioral issues, pts insight improved as well and soon pt deemed to be ready for discharge. patient has future oriented plans, patient was to go back to work, patient used to work in construction company, patient seems to be supportive, came to pick patient up.Patient wants to go to an intensive outpatient program, patient said that he has all contact information and willing to be followed up there at [facility]. At the time of the discharge pt denied been depressed, denied thoughts of harming self or others, denied psychotic symptoms, and pt does not appeared to be psychotic, denied been anxious, was considered to pose no threat to self or others, will be following up at intensive outpatient program at [facility], information about follow up appointment, time and address provided to the pt, it is patient responsibility to follow up with outpatient clinic, PMD as well as specialists (see SW note for more detailed information). In case pt will need to obtain results of studies pending at discharge pt was provided with contact information of Psychiatric Inpatient unit [phone] as well as Medical Record Department [phone]. Nicotine patch was offered Counseling about smoking and alcohol cessation provided AA meetings as well as smoking cessation treatment program information was provided by the pt was provided with prescriptions for all of medications (please see medication reconciliation form) Pt was educated about safety plan in case of worsening of symptoms or in case of suicidal or homicidal ideation call 911 or go to the nearest ER, also was educated to take meds as prescribed and stay away from drugs, pt verbalized understanding. - Diagnosis (1) Bipolar 1 disorder Status: Chronic Priority: Medium (2) Alcohol use disorder Status: Chronic Priority: Medium - Final Diagnosis (DSM 5) Condition upon Discharge: STABLE Disposition: HOME/ ROUTINE Follow-up Treatment Plan: At the time of the discharge pt denied been depressed, denied thoughts of harming self or others, denied psychotic symptoms, and pt does not appeared to be psychotic, denied been anxious, was considered to pose no threat to self or others, will be following up at intensive outpatient program at [facility], information about follow up appointment, time and address provided to the pt, it is patient responsibility to follow up with outpatient clinic, PMD as well as specialists (see note for more detailed information). In case pt will need to obtain results of studies pending at discharge pt was provided with contact information of Psychiatric Inpatient unit [phone] as well as Medical Record Department [phone]. Nicotine patch was offered Counseling about smoking and alcohol cessation provided AA meetings as well as smoking cessation treatment program information was provided by the pt was provided with prescriptions for all of medications (please see medication reconciliation form) Pt was educated about safety plan in case of worsening of symptoms or in case of suicidal or homicidal ideation call 911 or go to the nearest ER, also was educated to take meds as prescribed and stay away from drugs, pt verbalized understanding. Prescriptions/Medication Reconciliation: Folic Acid 1 mg PO DAILY #14 tab Gabapentin 300 mg PO TID #45 capsule Mirtazapine [Remeron] 30 mg PO HS #14 tab Multivitamin Therapeutic Tab [Thera Tab] 1 tab PO 0800 #14 tab Naltrexone [Revia] 50 mg PO DAILY #14 tab Nicotine 21 mg/24 hr [Nicoderm Cq] 1 patch TD DAILY #14 patch Pantoprazole [Protonix EC Tab] 40 mg PO 0600 #7 ect PARoxetine [Paxil] 20 mg PO DAILY #14 tab Thiamine [Vitamin B1 Tab] 100 mg PO DAILY #14 tab - Smoking Cessation Smoking Cessation Medication prescribed: Yes
== END 2017-03-15 14:00 | disposition home or self-care (01) | DRG 430 ==
LOC: ED 07:29 → ERH 07:44 → PSYC 08:45
PROVIDERS: ADMIT Psychiatry & Neurology Psychiatry; ATTEND Psychiatry & Neurology Psychiatry
DX: F31.9 Bipolar disorder, unspecified (principal); J98.11 Atelectasis; F17.210 Nicotine dependence, cigarettes, uncomplicated; K29.70 Gastritis, unspecified, without bleeding; K21.9 Gastro-esophageal reflux disease without esophagitis; F10.10 Alcohol abuse, uncomplicated; L30.9 Dermatitis, unspecified; Z87.11 Personal history of peptic ulcer disease; Z88.0 Allergy status to penicillin